=== PATIENT | female | born 1975 | race African-American/Black ===

== ENCOUNTER 2019-01-06 12:37 | Emergency (ER) | payer SELFPAY ==
[2019-01-06 12:40] VITALS: BP 119/72; PULSE 75; RESP 18; TEMP 36.9; O2SAT 97
--- NOTE | 2019-01-06 14:26 | ED_ITS ---
HPI - URI/Sore Throat <Vicky Birmingham PA-C - Last Filed: 01/06/19 22:05> General Chief Complaint: Upper Respiratory Symptoms Stated Complaint: COUGH TROUBLE BREATHING YELLO MUCUS Time Seen by Provider: 01/06/19 13:48 Source: patient Mode of arrival: ambulatory Limitations: no limitations History of Present Illness HPI Narrative: This 43-year-old female has a history of reactive airways t riggered by allergens, weather changes, or respiratory infections. She states that 6 or 7 days ago when the weather change, she started to have cough, sometimes dry, sometimes productive. She states that her chest is somewhat sore from coughing, otherwise no chest pain. She states that she has not had any known fever at home. She states that she has scratchy, hoarse throat from coughing, but not very sore. She states she does not have any earache or sinus pain but does have some sinus and nasal congestion. She states that she feels like she can work at the [employer] with no problem, but was sent home due to her voice being hoarse, and has to have a release to return to work. She states that she thinks this his her ?usual upper respiratory infection? that she tends to get, and she does tend to have cough with this, but states she does not feel bad and does not think this should keep her from working. She is not having body aches. She is not wheezing. She states that she feels a little bit more short of breath than normal when active, however she has not had an inhaler here as she lives in [place] and comes here for work. She states that aside from allergies and reactive airway she is healthy without any ongoing medical problems. She did have a flu vaccine. Related Data Previous Rx's Medication Instructions Recorded albuterol sulfate 2 puff INHALATION Q2-4H PRN #8.5 01/06/19 gram cetirizine-pseudoephedrine 1 tab PO Q12H PRN #20 tab 01/06/19 [Zyrtec-D] Allergies Allergy/AdvReac Type Severity Reaction Status Date / Time No Known Drug Allergies Allergy Verified 01/06/19 12:40 Review of Systems <Vicky Birmingham PA-C - Last Filed: 01/06/19 22:05> Review of Systems ROS Unobtainable: All systems reviewed & are unremarkable except as noted in HPI and below PFSH <Vicky Birmingham PA-C - Last Filed: 01/06/19 22:05> Medical History Never smoker (Chronic) Reactive airways dysfunction syndrome (Chronic) Seasonal allergies (Chronic) Surgical History Status post cholecystectomy (Resolved) Social History Smoking Status: Never smoker Social History Smoking Status: Never smoker Exam <NICHELLE Ballard Last Filed: 01/06/19 22:05> Narrative Exam Narrative: GENERAL APPEARANCE: Patient sitting comfortably, in no distress. HEAD: No sinus TTP. EYES: PERRL, EOMI. EARS: Normal auditory canals, TMS intact with normal light reflexes. ORAL CAVITY: Normal oropharynx. THROAT: Mild erythema and PND, no exudate NECK/THYROID: Neck supple, full range of motion, no cervical lymphadenopathy. LUNGS: Clear to auscultation bilaterally, occasional course cough on exam. HEART: RRR without murmur, nl S1, S2, no S3 or S4. Initial Vital Signs Initial Vital Signs: Vital Signs Temperature 98.4 F 01/06/19 12:40 Pulse Rate 75 01/06/19 12:40 Respiratory Rate 18 01/06/19 12:40 Blood Pressure 119/72 01/06/19 12:40 Pulse Oximetry 97 01/06/19 12:40 <Kelsey Smith DO - Last Filed: 01/10/19 00:51> Initial Vital Signs Initial Vital Signs: Vital Signs Temperature 98.4 F 01/06/19 12:40 Pulse Rate 75 01/06/19 12:40 Respiratory Rate 18 01/06/19 12:40 Blood Pressure 119/72 01/06/19 12:40 Pulse Oximetry 97 01/06/19 12:40 Course <NICHELLE Ballard Last Filed: 01/06/19 22:05> Additional Information: Patient feels like symptoms are typical for her, does no t have meds to treat her symptoms here, but does not feel like this will inhibit her work at all. She is afebrile. Her work does require some physical activity and climbing. She thinks it is reasonable for her to get back on her inhaler and some allergy medicine, and then return to work in a couple of days. She does not have a PCP locally and agrees to return if she has any worsening symptoms. Paperwork was completed for her work. Vital Signs - 8 hr 01/06/19 15:21 Pulse Rate 67 Respiratory Rate 16 Blood Pressure 116/84 Pulse Oximetry 99 <Kelsey Smith DO - Last Filed: 01/10/19 00:51> Vital Signs - 8 hr 01/06/19 15:21 Pulse Rate 67 Respiratory Rate 16 Blood Pressure 116/84 Pulse Oximetry 99 Discharge Plan Departure Patient Disposition: Home Clinical Impression: Mild intermittent reactive airway disease Upper respiratory infection Qualifiers: URI type: unspecified viral URI Qualified Code(s): J06.9 - Acute upper respiratory infection, unspecified Discharge Date/Time: 01/06/19 15:21 Interventions: ED Discharge Assessment Last Done: 01/06/19 15:21 Instructions: DI for Viral Upper Respiratory Infection -- Adult, DI for Reactive Airway Disease-Adult Activity Restrictions/Additional Instructions: Please return as we talked about if you have acutely worsening symptoms. Otherwise, rest at home for today and tomorrow, and start on the inhaler. Take ibuprofen as needed for fever or aches if you have them. I have sent in a prescription for Zyrtec D, which is an antihistamine/decongestant to help with your allergy and cough symptoms. I have also sent an albuterol inhaler which you can use as often as needed if your chest feels tight and you should also use this for your cough. Since you have a history of reactive airways, your cough and the subtle breathing changes you have noted are likely worse due to this. You can return to work on as long as you feel like you are better and your work is not being compromised Prescriptions: New cetirizine-pseudoephedrine [Zyrtec-D] 5-120 mg tablet extended release 12 hr 1 tab PO Q12H PRN (Reason: allergies/reactive airways) Qty: 20 RF: 0 albuterol sulfate 90 mcg/actuation HFA aerosol inhaler 2 puff INHALATION Q2-4H PRN (Reason: cough, shortness of breath or wheezing) Qty: 8.5 RF: 0 Stand Alone Forms: Work Release Note <Kelsey Smith DO - Last Filed: 01/10/19 00:51> Cosign ED Attending Brittaature Attestation: I was immediately available in the department for consultation. Documentation has been reviewed. I agree with assessment and plan.
--- NOTE | 2019-01-06 14:49 | PC.NURSE ---
Vinnie at bedside assessing patient.
[2019-01-06 15:21] VITALS: BP 116/84; PULSE 67; RESP 16; O2SAT 99
== END 2019-01-06 15:21 | disposition home or self-care (01) ==
PROVIDERS: Emergency Provider Internal Medicine
DX: J06.9 Acute upper respiratory infection, unspecified (principal)
CPT/HCPCS: 99282; 99283